=== PATIENT | female | born 1940 | race Two or more races ===

== ENCOUNTER 2017-06-20 09:58 | Emergency (ER) | payer OTHER ==
[~2017-06-20] VITALS: Ht 154.9 cm; Wt 61.2 kg
[2017-06-20] MEDS ORDERED: SYNTHROID88 MCG (10:06)
[2017-06-20] MEDS ORDERED: VASOTEC2.5 MG (10:06)
== END 2017-06-20 18:12 | disposition home or self-care (01) ==
LOC: ER 09:58
DX: J11.1 Influenza due to unidentified influenza virus with other respiratory manifestations (principal); B34.9 Viral infection, unspecified; R55 Syncope and collapse